=== PATIENT | female | born 1970 ===

== ENCOUNTER → 2024-04-30 | Outpatient (CLI) | payer OTHER | LOC: LAB SHORT 13:55 | DX: N92.4 Excessive bleeding in the premenopausal period (principal) | CPT/HCPCS: 88305 ==

== ENCOUNTER 2024-07-03 11:21 | Day surgery (SDC) | payer OTHER ==
[2024-07-03] VITALS (13 sets, daily range): BP systolic 104–149; BP diastolic 61–96
[~2024-07-03] VITALS: Ht 160 cm; Wt 126.7 kg
[~2024-07-03 11:21] MED LIST: CeFAZolin Sodium 3,000 MG VIAL ONE; CeFAZolin Sodium 3,000 MG in NS 100 ML IV SCH; FERROUS GLUCON324 M4 PO; Lactated Ringer's 1,000 ML IV SCH; propofoL 20 ML IV ONE
[2024-07-03] MEDS ORDERED: Midazolam HCl 1MG / ML 2ML Vial ONE (11:33)
[2024-07-03] MEDS ORDERED: FentaNYL Citrate 50 MCG/ML 2 ML Injection ONE ×3 (11:33→15:16)
[2024-07-03] MEDS ORDERED: Bupivacaine 0.5% W/EPI 1:200000 SDV 30 ML Vial ONE ×2 (12:02→14:40)
--- NOTE | 2024-07-03 12:13 | NUR ---
Ambulatory in Day Surgery History, Chart, Medications and Allergies reviewed before start of procedure. Pre-Op teaching done. Pt verbalizes understanding. Patient States Post-Procedure ride home has been arranged. TIMEOUT [address] KIM AND PATIENT FOR BILATERAL QUADRATUS LUMBORUM PROCEDURE; TOLERATED WELL.
[2024-07-03] MEDS ORDERED: Bupivacaine HCl 2.5 MG/ML 10ML P/F Injection ONE ×2 (12:43→12:44)
[2024-07-03] MEDS ORDERED: EpiNEPhrine 1 MG/1 ML 1ML Vial ONE (12:43)
--- NOTE | 2024-07-03 13:21 | NUR ---
07/03/24 1321 Xander Bustillos INSERTED A ASTORGA CATHETER 14FR ON PT IN [facility] UNDER VERBAL ORDER OF DR. MURO. ASTORGA WILL BE REMOVED PRIOR TO LEAVING THE OR. XANDER JUSTICE RN 07-03-24 @[id number]
[2024-07-03] MEDS ORDERED: HYDROmorphone HCl/Pf 1MG SYR ONE (14:00)
[2024-07-03] MEDS ORDERED: Sugammadex Sodium 200 MG/2ML SDV (100 MG/ML) ONE (16:06)
[2024-07-03] MEDS ORDERED: FLU VACC TS2024-25(6MOS UP)/PF 45 MCG/0.5 ML SYRINGE IM SCH (16:45)
[2024-07-03] MEDS ORDERED: HYDROmorphone HCl/Pf 1MG SYR IV PRN (16:45)
[2024-07-03] MEDS ORDERED: Metoclopramide HCl 10 MG Tab PO PRN (16:50)
[2024-07-03] MEDS ORDERED: Lactated Ringer's 1,000 ML IV SCH (16:50)
[2024-07-03] MEDS ORDERED: Naloxone HCl 0.4MG / ML 1ML Vial IV PRN (16:50)
[2024-07-03] MEDS ORDERED: DiphenhydrAMINE HCL 25 MG Cap PO PRN (16:50)
[2024-07-03] MEDS ORDERED: Acetaminophen 325 MG TABLET PO PRN (16:50)
[2024-07-03] MEDS ORDERED: Metoclopramide HCl 5MG / ML 2ML Vial IV PRN (16:50)
[2024-07-03] MEDS ORDERED: Simethicone 80 MG Chew PO PRN (16:55)
[2024-07-03] MEDS ORDERED: OxyCODONE HCL 5 MG TAB PO PRN (16:55)
[2024-07-03] MEDS ORDERED: Ondansetron 4 MG TAB PO PRN (16:55)
[2024-07-03] MEDS ORDERED: Ondansetron HCl 2 MG / ML 2ML Vial IV PRN (16:55)
[2024-07-03] MEDS ORDERED: Ketorolac Tromethamine 30mg Vial IV PRN (17:35)
--- NOTE | 2024-07-03 17:44 | NUR ---
PT ARRIVED TO UNIT FROM PACU VSS. PT REPORTING PAIN 1/10 IN LOWER ABD. LAP INCISONS TO ABD X4 W/TISS ADHESIVE CDI. PT SHIVERING/ PROVIDED KPAD FOR COMFORT AND COVERED IN BLANKETS. ASTORGA CATHD DRAINING YELLOW URINE. VAG PACKING IN PLACE. LCA W/DIM BASES. 02 SATS STABLE ON 3L NC. HRR. BT HYPOX. ORIENTED PT TO USE OF CALL LIGHT AND FALL PRECAUTIONS. PROVIDED WATER. CALL LIGHT IN REACH.
[2024-07-03] MEDS ORDERED: Ibuprofen 400 MG Tab PO PRN (21:55)
[2024-07-04 03:49] VITALS: BP 122/75
[2024-07-04 04:55] LABS: BASOPHILS ABSOLUTE AUTO 0.01 K/mm3 (0.00-0.23); BASOPHILS PERCENT AUTO 0 % (0-2); EOSINOPHILS PERCENT AUTO 0 % (0-6); Hematocrit 32.5 % (33.0-51.0); Hemoglobin 10.3 g/dL (11.5-16.0); IMMATURE GRAN ABSOLUTE AUTO 0.04 K/mm3 (0.00-0.10); IMMATURE GRAN PERCENT AUTO 0 % (0-1); LYMPHOCYTES PERCENT AUTO 6 % (21-46); MONOCYTES ABSOLUTE AUTO 0.66 K/mm3 (0.16-1.47); MONOCYTES PERCENT AUTO 5 % (4-13); Mean Corpuscular HGB 28.1 pg (26.0-34.0); Mean Corpuscular HGB Conc 31.7 g/dL (31.5-36.5); Mean Corpuscular Volume 89 fL (80-100); Mean Platelet Volume 9.2 fL (9.1-12.4); NEUTROPHILS ABSOLUTE AUTO 12.19 K/mm3 (1.96-9.15); NEUTROPHILS PERCENT AUTO 89 % (41-73); Platelet Count 341 K/mm3 (150-400); RDW Coefficient Variation 14.5 % (11.7-14.2); RDW Standard Deviation 47.4 fL (35.1-46.3); Red Blood Cell Count 3.66 M/mm3 (3.80-5.20)
--- NOTE | 2024-07-04 06:51 | NUR ---
PT SLEEPY. A&Ox4. ASTORGA PATENT WITH YELLOW URINE. IV RT AC PATENT WITH 200 ML LTC SL POST IVF INFUSED. PATIENT HAVING MILD DISCOMFORT BUT DENIES NEED FOR PAIN MEDS. MORE CONCERNED WITH IF SHE WAS STAYING THE NIGHT. VAGINAL PACKING IN PLACE. PATIENT HUNGRY, DINNER TRAY GIVEN. ABD WITH 4 SMALL INCISIONS, GLUED, CLOSED, CLEAR WITH NO DRAINAGE. PATIENT ABLE TO REPOSITION SELF UP IN THE BED. ROLLED SIDE TO SIDE TO GET LINEN AND SLIDER OUT FROM UNDER HER. CALL LIGHT IN REACH T/O NOC. ENCOURAGED PATIENT TO TCDB. LS CLEAR T/O. PATIENT RESTED QUIETLY T/O NIGHT. THIS AM PATIENT REPORTED SHE DID NOT SLEEP MUCH. I CHECKED ON HER SEVERAL TIMES AND SHE WAS SNORING. 0600 ASTORGA DC'D 900 ML OUTPUT. VAGINAL PACKING REMOVED WITH MODERATE AMOUNT RED DRAINAGE. RED DRAINAGE ON STAPLETON PAD NOTED. ENCOURAGED PT TO CALL WHEN SHE GETS UP TO AMDULATE TO THE BR. ENCOURAGED HER TO TRY TO VOID SOON. WANTS TO REST NOW. REPORT TO RN TAKING PATIENT.
[2024-07-04 07:31] VITALS: BP 119/79
[2024-07-04] MEDS ORDERED: Polyethylene Glycol 3350 17 gm PO ONE (11:00)
[2024-07-04] MEDS ORDERED: Polyethylene Glycol 3350 17 gm PO PRN (11:00)
--- NOTE | 2024-07-04 11:38 | NUR ---
PT REPORTS "UNCOMFORTABLE" RATED PAIN 4/10 BUT DECLININED OFFER OF OXYCODONE. REC'D IBUPROFEN AND SIMETHICONE THIS AM. ABDOMINAL BINDER PLACED AND MIRALAX ADMINISTERED PER ORDERS. PT AMBULATED IN [facility]. VOIDING.
[2024-07-04 14:20] VITALS: BP 116/83
--- NOTE | 2024-07-04 14:52 | NUR ---
discharged PT HAD BM PRIOR TO DC. VOIDING. TOLERATING PO. DECLINED OXYCODONE, WANTED TO ONLY TAKE IBUPROFEN FOR PAIN. REVIEWED DC INSTRUCTIONS W/PT; VERBALIZED UNDERSTANDING. IV DC'D. VSS. PT LEFT UNIT IN WC W/POSSESSIONS AND DC PAPERWORK IN HAND, ACCOMPANIED BY SO TO RIDE OUTSIDE.
== END 2024-07-04 14:56 | disposition home or self-care (01) ==
LOC: ORSCMMR 11:21 → ORD 12:45 → ORSCMMR 12:45 → ORD 13:00 → SURS 17:24 → ORSCMMR 07-04 14:56
PROVIDERS: Obstetrics & Gynecology
PROC: 0UT9FZZ Resection of Uterus, Via Natural or Artificial Opening With Percutaneous Endoscopic Assistance (ICD-10-PCS; principal; 2024-07-03 12:45)
PROC: 0UT7FZZ Resection of Bilateral Fallopian Tubes, Via Natural or Artificial Opening With Percutaneous Endoscopic Assistance (ICD-10-PCS; principal; 2024-07-03 12:45)
PROC: 8E0W4CZ Robotic Assisted Procedure of Trunk Region, Percutaneous Endoscopic Approach (ICD-10-PCS; principal; 2024-07-03 12:45)
DX: N92.4 Excessive bleeding in the premenopausal period (principal); N84.0 Polyp of corpus uteri; N80.03 Adenomyosis of the uterus; D25.9 Leiomyoma of uterus, unspecified; E66.01 Morbid (severe) obesity due to excess calories; Z68.43 Body mass index [BMI] 50.0-59.9, adult; D50.9 Iron deficiency anemia, unspecified; J45.909 Unspecified asthma, uncomplicated; Z79.899 Other long term (current) drug therapy
CPT/HCPCS: 36415; 85025; 86850; 86900; 86901; 88307; A9270; J0171; J0690; J1171; J2250; J2704; J3010; J7120